=== PATIENT | female | born 1935 | race Caucasian/White ===

== ENCOUNTER 2016-12-06 12:24 | Emergency (ER) | payer OTHER, MEDICARE ==
--- NOTE | 2016-12-06 12:29 | EDPHY ---
HPI/HX/ROS/PE/MDM Narrative: CHIEF COMPLAINT: Head injury. HPI: The patient is an 81-year-old female, brought in by EMS after a mechanical fall. The patient tried to catch a 60 pound child from falling down the stairs. Due to the weight of the child the patient fell backwards down four stairs and hit her head. No loss of consciousness. Patient denies neck or back pain. No headache or nausea. Cervical collar in place on arrival. REVIEW OF SYSTEMS: Aside from elements discussed in the HPI, a comprehensive 10-point review of systems was reviewed and is negative. PMH: Hyperlipidemia, Cardiac stents, Macrodegeneration. SOCIAL HISTORY: Retired. Lives in [place]. PHYSICAL EXAM: General: Patient is alert, in no acute distress. ENT: Eyes are normal to inspection. ENT inspection normal. Neck: Normal inspection. Full range of motion. Respiratory: No respiratory distress. Breath sounds normal bilaterally. Cardiovascular: Regular rate and rhythm. Strong peripheral pulses. Abdomen: The abdomen is nontender to palpation. There are no peritoneal signs. There are normal bowel sounds. Back: Normal to inspection. No tenderness to palpation. Skin: Normal color. No rash. Warm and dry. Extremities: Normal appearance. Full range of motion. Neuro: Oriented x3. Normal motor function. Normal sensory function. ED Course: The patient presents with a head injury after a mechanical fall down 4 stairs. Patient is not anticoagulated. CT head and neck ordered. Plan to check labs and troponin. Lab work is negative. I viewed the CT head and neck images myself on the PACS system and spoke to the radiologist. Nothing acute. See the full radiology report in the imaging section. MDM: This patient presents after mechanical fall with head injury. Givne age and height of fall, CT imaging indicated. Thankfully, CThead and neck are negative for acute trauma. Patient is without pain or weakness on repeat exam. I think she is safe for discharge home. - Data Points Laboratory Results: Laboratory Results 12/06/16 13:32 12/06/16 12/06/16 12/06/16 13:32 13:32 13:32 WBC 7.03 10^3/uL 10^3/uL (3.80-9.50) RBC 4.44 10^6/uL 10^6/uL (4.18-5.33) Hgb 12.9 g/dL g/dL (12.6-16.3) Hct 39.5 % % (38.0-47.0) MCV 89.0 fL fL (81.5-99.8) MCH 29.1 pg pg (27.9-34.1) MCHC 32.7 g/dL g/dL (32.4-36.7) RDW 13.2 % % (11.5-15.2) Plt Count 217 10^3/uL 10^3/uL (150-400) MPV 10.0 fL fL (8.7-11.7) Neut % (Auto) 70.8 % % (39.3-74.2) Lymph % (Auto) 18.6 % % (15.0-45.0) [place] % (Auto) 6.5 % % (4.5-13.0) Eos % (Auto) 3.1 % % (0.6-7.6) Baso % (Auto) 0.6 % % (0.3-1.7) Nucleat RBC Rel Count 0.0 % % (0.0-0.2) Absolute Neuts (auto) 4.97 10^3/uL 10^3/uL (1.70-6.50) Absolute Lymphs (auto) 1.31 10^3/uL 10^3/uL (1.00-3.00) Absolute Monos (auto) 0.46 10^3/uL 10^3/uL (0.30-0.80) Absolute Eos (auto) 0.22 10^3/uL 10^3/uL (0.03-0.40) Absolute Basos (auto) 0.04 10^3/uL 10^3/uL (0.02-0.10) Absolute Nucleated RBC 0.00 10^3/uL 10^3/uL (0-0.01) Immature Gran % 0.4 % % (0.0-1.1) Immature Gran # 0.03 10^3/uL 10^3/uL (0.00-0.10) PT Pending INR Pending APTT Pending Sodium Pending Potassium Pending Chloride Pending Carbon Dioxide Pending Anion Gap Pending BUN Pending Creatinine Pending Estimated GFR Pending Glucose Pending Calcium Pending Troponin I Pending General Initial Vital Signs: Initial Vital Signs Temperature (C) 36.6 C 12/06/16 12:39 Heart Rate 56 L 12/06/16 12:39 Respiratory Rate 18 12/06/16 12:39 Blood Pressure 131/69 H 12/06/16 12:39 O2 Sat (%) 98 12/06/16 12:39 O2 Delivery Mode Room Air Allergies/Adverse Reactions: codeine Allergy (Unknown, Verified 06/09/16 14:54) Vomiting Home Medications: Medication Instructions Recorded Aspirin [Aspirin 81mg (OTC)] 81 mg PO DAILY 05/05/13 Atorvastatin Calcium [Lipitor 20 20 mg PO DAILY 05/05/13 mg (RX)] Carboxymethylcellulose 1% [Refresh 1 drop EACHEYE DAILY PRN 05/05/13 Celluvisc] Herbals/Supplements -Info Only 06/09/16 Departure - Departure Disposition: Home, Routine, Self-Care Clinical Impression: Fall (on) (from) other stairs and steps, initial encounter Head injury Qualifiers: Encounter type: initial encounter Qualified Code(s): S09.90XA - Unspecified injury of head, initial encounter Condition: Good Instructions: Head Injury (ED) Additional Instructions: Follow-up with your primary doctor within 72 hours if you continue to have pain. Return to the Emergency Department for severe headache, vomiting, vision changes, confusion, fever or other concerns. Referrals: Marianne Taveras MD [Primary Care Provider] - As per Instructions Report Scribed for: Gunnar Guerrero Report Scribed by: Tracey Rosales Date of Report: 12/06/16 Time of Report: 12:28 Physician Review and Approval Statement: Portions of this note were transcribed by a medical economics consultant. I personally performed the history, physical exam, and medical decision-making; and confirmed the accuracy of the information in the transcribed note.
[2016-12-06 13:39] LABS: % IMMATURE GRANULYOCYTES 0.4 % (0.0-1.1); ABSOLUTE IMMATURE GRANULOCYTES 0.03 10^3/uL (0.00-0.10); ADD DIFF? NO; ADD MORPH? NO; ADD SCAN? NO; ATYPICAL LYMPHOCYTE FLAG 10 (0-99); FRAGMENT RBC FLAG 0 (0-99); HEMATOCRIT 39.5 % (38.0-47.0); HEMOGLOBIN 12.9 g/dL (12.6-16.3); LEFT SHIFT FLG 0 (0-99); LIPEMIA HEMOLYSIS FLAG 80 (0-99); MEAN CELL HEMOGLOBIN 29.1 pg (27.9-34.1); MEAN CELL HEMOGLOBIN CONCENTR. 32.7 g/dL (32.4-36.7); PLATELET CLUMPS FLAG 0 (0-99); PLATELET COUNT 217 10^3/uL (150-400); RED BLOOD CELL COUNT 4.44 10^6/uL (4.18-5.33); RED CELL DISTRIBUTION WIDTH 13.2 % (11.5-15.2)
[2016-12-06 13:57] LABS: ANION GAP 10 mEq/L (8-16); CALCIUM 9.1 mg/dL (8.5-10.4); CARBON DIOXIDE 26 mEq/l (22-31); CHLORIDE 102 mEq/L (97-110); CREATININE 0.7 mg/dL (0.6-1.0); GLOMERULAR FILTRATION RATE > 60; GLUCOSE 80 mg/dL (70-100); SODIUM 138 mEq/L (134-144)
[2016-12-06 14:09] LABS: TROPONIN I < 0.012 ng/mL (0-0.034)
[2016-12-06 14:13] LABS: INR 1.06 (0.83-1.16); PROTIME(PATIENT) 13.7 SEC (12.0-15.0)
[2016-12-06 14:14] VITALS: BP 135/68; PULSE 54; RESP 16; TEMP 96.8; O2SAT 97
[2016-12-06 14:14] LABS: APTT 34.2 SEC (23.0-38.0)
== END 2016-12-06 14:14 | disposition home or self-care (01) ==
LOC: EDUNIT#
DX: S09.90XA Unspecified injury of head, initial encounter (principal); Z79.82 Long term (current) use of aspirin; Z95.5 Presence of coronary angioplasty implant and graft; W10.8XXA Fall (on) (from) other stairs and steps, initial encounter

== ENCOUNTER 2017-11-26 14:02 | Emergency (ER) | payer OTHER, MEDICARE ==
[2017-11-26] MEDS ORDERED: NS 1,000 ML IV ONE (14:13)
--- NOTE | 2017-11-26 14:13 | EDPHY ---
H & P Stated Complaint: Sent by PCP, feeling dizzy, lethargy, loss of weight. Time Seen by Provider: 11/26/17 14:13 HPI/ROS: CHIEF COMPLAINT: Presyncope HISTORY OF PRESENT ILLNESS: The patient presents to the ED with a one-week history of intermittent presyncope. The patient denies actual loss of consciousness, headache, numbness or weakness. The patient has no complaints of fever, cough or congestion. She denies dysuria. She does have a history of coronary artery disease but denies any exertional chest pain or shortness of breath. The patient denies any recent changes to her medications. The patient has no complaints of an acute headache or recent trauma. The patient states that her presyncopal symptoms are somewhat positional in nature. REVIEW OF SYSTEMS: A comprehensive 10 point review of systems is otherwise negative aside from elements mentioned in the history of present illness. Source: Patient - Personal History Current Tetanus Diphtheria and Acellular Pertussis (TDAP): Unsure Tetanus Vaccine Date: unsure - Medical/Surgical History Hx Asthma: No Hx Chronic Respiratory Disease: Yes Hx Diabetes: No Hx Cardiac Disease: Yes Hx Renal Disease: No Hx Cirrhosis: No Hx Alcoholism: No Hx HIV/AIDS: No Hx Splenectomy or Spleen Trauma: No Other PMH: hyperlipidemia , cardiac stents, macrodegeneration "bronchiolitis" - Social History Smoking Status: Never smoked - Physical Exam Exam: General Appearance: Alert, no distress Eyes: Pupils equal and round no pallor or injection ENT, Mouth: Mucous membranes moist Respiratory: There are no retractions, lungs are clear to auscultation Cardiovascular: Regular rate and rhythm Gastrointestinal: Abdomen is soft and nontender, no masses, bowel sounds normal Neurological: A&O, normal motor function, normal sensory exam, normal cranial nerves Skin: Warm and dry, no rashes Musculoskeletal: Neck is supple nontender Extremities: symmetrical, full range of motion Constitutional: Initial Vital Signs Temperature (C) 36.7 C 11/26/17 14:03 Heart Rate 75 11/26/17 14:03 Respiratory Rate 16 11/26/17 14:03 Blood Pressure 134/72 H 11/26/17 14:03 O2 Sat (%) 96 11/26/17 14:03 O2 Delivery Mode Room Air Allergies/Adverse Reactions: codeine Allergy (Unknown, Verified 06/09/16 14:54) Vomiting Home Medications: Medication Instructions Recorded Aspirin [Aspirin 81mg (OTC)] 81 mg PO DAILY 05/05/13 Atorvastatin Calcium [Lipitor 20 20 mg PO DAILY 05/05/13 mg (RX)] Carboxymethylcellulose 1% [Refresh 1 drop EACHEYE DAILY PRN 05/05/13 Celluvisc] Herbals/Supplements -Info Only 06/09/16 Medical Decision Making - Diagnostics EKG Interpretation: EKG: Complete interpretation has been separately recorded in the [facility] archive. Summary impression: Sinus rhythm, bifascicular block. Unchanged from prior EKG ED Course/Re-evaluation: The patient presents to the emergency department with vague presyncopal complaints for the past week. The patient was noted to be neurologically intact. The patient is noted to have normal laboratory testing in the ED. The patient has trace pyuria. A urine culture will be obtained. The patient received IV fluids. She has no orthostasis in the emergency department. At this point time I do not feel that further workup is indicated. She has no evidence of an arrhythmia or significant metabolic issue. The patient will be discharged from the emergency department at 4:00 p.m.. Differential Diagnosis: Differential diagnosis considered includes arrhythmia, dehydration, anemia, vasovagal episode, urinary tract infection - Data Points Laboratory Results: Laboratory Results 11/26/17 14:25 11/26/17 14:25 11/26/17 11/26/17 11/26/17 14:55 14:25 14:25 WBC 7.94 10^3/uL 10^3/uL (3.80-9.50) RBC 4.41 10^6/uL 10^6/uL (4.18-5.33) Hgb 13.1 g/dL g/dL (12.6-16.3) Hct 39.8 % % (38.0-47.0) MCV 90.2 fL fL (81.5-99.8) MCH 29.7 pg pg (27.9-34.1) MCHC 32.9 g/dL g/dL (32.4-36.7) RDW 12.8 % % (11.5-15.2) Plt Count 233 10^3/uL 10^3/uL (150-400) MPV 10.3 fL fL (8.7-11.7) Neut % (Auto) 69.5 % % (39.3-74.2) Lymph % (Auto) 18.3 % % (15.0-45.0) [place] % (Auto) 7.1 % % (4.5-13.0) Eos % (Auto) 4.3 % % (0.6-7.6) Baso % (Auto) 0.5 % % (0.3-1.7) Nucleat RBC Rel Count 0.0 % % (0.0-0.2) Absolute Neuts (auto) 5.53 10^3/uL 10^3/uL (1.70-6.50) Absolute Lymphs (auto) 1.45 10^3/uL 10^3/uL (1.00-3.00) Absolute Monos (auto) 0.56 10^3/uL 10^3/uL (0.30-0.80) Absolute Eos (auto) 0.34 10^3/uL 10^3/uL (0.03-0.40) Absolute Basos (auto) 0.04 10^3/uL 10^3/uL (0.02-0.10) Absolute Nucleated RBC 0.00 10^3/uL 10^3/uL (0-0.01) Immature Gran % 0.3 % % (0.0-1.1) Immature Gran # 0.02 10^3/uL 10^3/uL (0.00-0.10) Sodium 140 mEq/L mEq/L (135-145) Potassium 5.0 mEq/L mEq/L (3.5-5.2) Chloride 102 mEq/L mEq/L (97-110) Carbon Dioxide 26 mEq/l mEq/l (22-31) Anion Gap 12 mEq/L mEq/L (8-16) BUN 17 mg/dL mg/dL (7-23) Creatinine 1.0 mg/dL mg/dL (0.6-1.0) Estimated GFR 53 Glucose 88 mg/dL mg/dL (70-100) Calcium 9.2 mg/dL mg/dL (8.5-10.4) Urine Color YELLOW Urine Appearance CLEAR Urine pH 5.0 (5.0-7.5) Ur Specific [place] 1.005 (1.002-1.030) Urine Protein NEGATIVE (NEGATIVE) Urine Ketones NEGATIVE (NEGATIVE) Urine Blood NEGATIVE (NEGATIVE) Urine Nitrate NEGATIVE (NEGATIVE) Urine Bilirubin NEGATIVE (NEGATIVE) Urine Urobilinogen NEGATIVE EU EU (0.2-1.0) Ur Leukocyte Esterase 2+ H (NEGATIVE) Urine RBC 1-3 /hpf /hpf (0-3) Urine WBC 3-5 /hpf H /hpf (0-3) Ur Epithelial Cells TRACE /lpf /lpf (NONE-1+) Urine Bacteria TRACE /hpf H /hpf (NONE SEEN) Urine Glucose NEGATIVE (NEGATIVE) Medications Given: Discontinued Medications Sodium Chloride (Ns) 1,000 mls @ 0 mls/hr IV EDNOW ONE; Wide Open PRN Reason: Protocol Stop: 11/26/17 14:14 Last Admin: 11/26/17 14:30 Dose: 1,000 mls Departure - Departure Disposition: Home, Routine, Self-Care Clinical Impression: Vasovagal attack Condition: Good Instructions: Syncope (ED) Additional Instructions: 1. Please contact the emergency department in 2 days to check the results of your urine culture. 2. Please try and increase your fluid intake as dehydration likely contributed to your symptoms today. 3. Please schedule a follow-up appointment with your primary care provider 4. Please return to the ED for markedly worsening symptoms or other concerns. 5. Testing in the ED today demonstrates no problems with your EKG, electrolytes or blood counts. Referrals: Marianne Taveras MD [Primary Care Provider] - As per Instructions
--- NOTE | 2017-11-26 14:19 | CPEKG ---
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
[2017-11-26 14:37] LABS: PLATELET COUNT 233 10^3/uL (150-400)
[2017-11-26 16:26] VITALS: BP 126/65
== END 2017-11-26 16:22 | disposition home or self-care (01) ==
DX: R55 Syncope and collapse (principal); E86.9 Volume depletion, unspecified; Z79.82 Long term (current) use of aspirin

== ENCOUNTER → 2018-07-08 | Outpatient (CLI) | payer OTHER, MEDICARE | LOC: BMCIMAGING 13:02 | PROVIDERS: ATTEND Family Medicine | DX: J47.9 Bronchiectasis, uncomplicated (principal); J98.4 Other disorders of lung ==

== ENCOUNTER → 2018-11-28 | Outpatient (CLI) | payer OTHER, MEDICARE | LOC: FIMAGING 09:41 | PROVIDERS: ATTEND Internal Medicine Pulmonary Disease | DX: J47.9 Bronchiectasis, uncomplicated (principal); A31.0 Pulmonary mycobacterial infection; R91.8 Other nonspecific abnormal finding of lung field; I51.7 Cardiomegaly ==